=== PATIENT | female | born 1960 | race African-American/Black ===

== ENCOUNTER 2016-12-20 07:32 | Observation (INO) | payer OTHER ==
[~2016-12-20] VITALS: Ht 180.3 cm; Wt 92.0 kg
[2016-12-20 07:34] VITALS: BP 185/99; PULSE 130; RESP 24; TEMP 98.9; O2SAT 93
[2016-12-20] MEDS ORDERED: BUTA1CAP PO (07:46)
--- NOTE | 2016-12-20 08:00 | PD ---
HPI Chief Complaint: ENT Complaint Time Seen by Provider: 08:00 Travel History International Travel<30 days: No Contact w/Intl Traveler<30days: No Traveled to known affect area: No History of Present Illness HPI 56-year-old female came to the emergency room with history of right sided throat pain, difficulty swallowing and pain radiating into her right ear. Patient says this started this morning. Patient is deaf and has difficulty speaking. It is difficult to understand exactly what she says but most of it was obtained from hand gestures and reading lips. Patient was tachycardic upon arrival but also seemed anxious. She was afebrile. ON LICENSE OF [facility] Past Medical History Narrative Medical List of her past medical, surgical, social and family history is reviewed from the nursing note. Migraines: Yes Social History Alcohol Use: Yes (WEEKENDS) Tobacco Use: Yes (OCC) Substance Use: No Allergies-Medications (Allergen,Severity, Reaction): Coded Allergies: penicillin G (Verified Allergy, Severe, Hives, 12/20/16) Comments List of her allergies reviewed from the nursing note. Reported Meds & Prescriptions Reported Meds & Active Scripts Active Reported Fioricet (Tzxfegdqhh-Jzfgviddgkbvk-Ejlhqzmf) Unknown Strength Cap Unknown Dose PO Q4H PRN Narrative Medication List of her home medications reviewed from the nursing note. Review of Systems Except as stated in HPI: all other systems reviewed are Neg Physical Exam Narrative GENERAL: Awake, alert, moderate distress, anxious SKIN: Focused skin assessment warm/dry. HEAD: Atraumatic. Normocephalic. EYES: Pupils equal and round. No scleral icterus. No injection or drainage. ENT: No nasal bleeding or discharge. Mucous membranes pink and moist. Right anterior and posterior pillar of the tonsil swollen, angioedema, trismus NECK: Trachea midline. No JVD. CARDIOVASCULAR: Regular rate and rhythm. No murmur appreciated. RESPIRATORY: No accessory muscle use. Clear to auscultation. Breath sounds equal bilaterally. GASTROINTESTINAL: Abdomen soft, non-tender, nondistended. Hepatic and splenic margins not palpable. MUSCULOSKELETAL: No obvious deformities. No clubbing. No cyanosis. No edema. NEUROLOGICAL: Awake and alert. No obvious cranial nerve deficits. Motor grossly within normal limits. Normal speech. PSYCHIATRIC: Appropriate mood and affect; insight and judgment normal. Data Data Last Documented VS Vital Signs Date Time Temp Pulse Resp B/P (MAP) Pulse Ox O2 Delivery O2 Flow Rate FiO2 12/20/16 08:40 105 20 94 12/20/16 08:04 Room Air 12/20/16 07:34 98.9 Orders Orders Ecg Monitoring (12/20/16 08:07) Iv Access Insert/Monitor (12/20/16 08:07) Oximetry (12/20/16 08:07) Diphenhydramine Inj (Benadryl Inj) (12/20/16 08:15) Methylprednisolone So Succ Inj (Solumedr (12/20/16 08:15) Famotidine Inj (Pepcid Inj) (12/20/16 08:15) Sodium Chlor 0.9% 1000 Ml Inj (Ns 1000 M (12/20/16 08:07) Sodium Chloride 0.9% Flush (Ns Flush) (12/20/16 08:15) Epinephrine (1:1000) Inj (Adrenalin (1:1 (12/20/16 08:15) Lorazepam Inj (Ativan Inj) (12/20/16 08:15) Ct Soft Tiss Neck W/O Iv Cont (12/20/16 ) Complete Blood Count With Diff (12/20/16 11:36) Basic Metabolic Panel (Bmp) (12/20/16 11:36) C-Reactive Protein (Crp) (12/20/16 11:36) Blood Culture (12/20/16 11:36) Ceftriaxone Inj (Rocephin Inj) (12/20/16 11:45) Vascular Access Team Consult/P PRN (12/20/16 12:37) Vascular Poc Ultrasound (12/20/16 ) Admit Order (Ed Use Only) (12/20/16 14:50) Labs Laboratory Tests Test 12/20/16 11:00 White Blood Count 11.2 TH/MM3 Red Blood Count 5.10 MIL/MM3 Hemoglobin 15.4 GM/DL Hematocrit 45.7 % Mean Corpuscular Volume 89.7 FL Mean Corpuscular Hemoglobin 30.2 PG Mean Corpuscular Hemoglobin Concent 33.6 % Red Cell Distribution Width 14.0 % Platelet Count 239 TH/MM3 Mean Platelet Volume 9.5 FL Neutrophils (%) (Auto) 67.8 % Lymphocytes (%) (Auto) 20.4 % Monocytes (%) (Auto) 9.7 % Eosinophils (%) (Auto) 1.8 % Basophils (%) (Auto) 0.3 % Neutrophils # (Auto) 7.5 TH/MM3 Lymphocytes # (Auto) 2.3 TH/MM3 Monocytes # (Auto) 1.1 TH/MM3 Eosinophils # (Auto) 0.2 TH/MM3 Basophils # (Auto) 0.0 TH/MM3 CBC Comment DIFF FINAL Differential Comment Blood Urea Nitrogen 12 MG/DL Creatinine 0.79 MG/DL Random Glucose 86 MG/DL Calcium Level 9.6 MG/DL Sodium Level 138 MEQ/L Potassium Level 3.9 MEQ/L Chloride Level 105 MEQ/L Carbon Dioxide Level 25.6 MEQ/L Anion Gap 7 MEQ/L Estimat Glomerular Filtration Rate 90 ML/MIN C-Reactive Protein 1.60 MG/DL MDM Medical Decision Making Medical Screen Exam Complete: Yes Emergency Medical Condition: Yes Medical Record Reviewed: Yes Differential Diagnosis Angioedema, allergic reaction, infection Narrative Course 11:42 AM initially upon her presentation given the angioedema I have posted as an allergic reaction. Patient has been a poor historian given the speaking difficulty. She was also very anxious and edgy and all over the place. She was given IV Solu-Medrol, IV Benadryl, IV famotidine and IM epinephrine. Given her anxiety she was given 0.5 mg of IV Ativan. She was getting 1 L of IV fluid bolus while in the middle of the bolus the line infiltrated and the nurse had to stop it. I went back and reassessed her little while ago and she was asleep but when she woke up she had to spit her saliva again. Upon doing the intraoral exam this swelling seemed to be better but still there. Patient still seemed to be in pain. I ordered a CT scan for the soft tissue of the neck without contrast which shows a possible mass that could either be infectious or malignancy. Based on this I have ordered blood test and I will admit this patient. I've given her a dose of Rocephin order as well. Awaiting for the blood test and the admitting physician. Critical Care Narrative Aggregate critical care time was 45 minutes minutes. Time to perform other separately billable procedures was not included in the critical care time. My time did not include minutes spent treating any other patients simultaneously or on activities that did not directly contribute to the patient's treatment. The services I provided to this patient were to treat and/or prevent clinically significant deterioration that could result in: Angioedema in the throat unilaterally, treatment for severe allergy including epinephrine I provided critical care services requiring my management, as noted below: Chart data review, documentation time, medication orders and management, vital sign assessments/reviewing monitor data, ordering and reviewing lab tests, ordering and interpreting/reviewing x-rays and diagnostic studies, care of the patient and discussion of the patient with the admitting physicians. Procedures EKG Prior to Arrival: No Diagnosis Primary Impression: Localized soft tissue swelling Additional Impression: Angioedema Qualified Codes: T78.3XXA - Angioneurotic edema, initial encounter Admitting Information Admitting Physician Requests: Observation Scripts Methylprednisolone Dosepak (Methylprednisolone Dosepak) 4 Dspk 4 MG PO DIRECTED for Inflammation, #1 DSPK 0 Refills Per Pharmacist Direction Prov: Toñito Pagan MD 12/21/16 Clindamycin (Clindamycin) 300 Mg Cap 300 MG PO Q6H for Infection, #56 CAP 0 Refills Prov: Toñito Pagan MD 12/21/16 Lactobacillus Acidophilus (Acidophilus/l-Sporogenes) 35 Million Cell-25 Million Cell Tab 1 TAB PO TID for probiotic, #60 TAB 0 Refills Prov: Toñito Pagan MD 12/21/16 Pramod Murray MD Dec 20, 2016 08:00
[2016-12-20 08:04] VITALS: BP 131/81; PULSE 124; RESP 20; O2SAT 94
[2016-12-20] MEDS ORDERED: SODIUM CHLOR 0.9% 1000 ML INJ 1,000 ML IV SCH (08:07)
[2016-12-20] MEDS ORDERED: diphenhydrAMINE HCL 50 MG/ML VIAL IVP ONE (08:15)
[2016-12-20] MEDS ORDERED: FAMOTIDINE 20 MG/2 ML VIAL IV PUSH ONE (08:15)
[2016-12-20] MEDS ORDERED: EPINEPHrine HCL (1:1000) 1 MG/ML VIAL IM ONE (08:15)
[2016-12-20] MEDS ORDERED: methylPREDNISolone SOD SUCC 125 MG/2 ML VIAL IV PUSH ONE (08:15)
[2016-12-20] MEDS ORDERED: LORazepam 2 MG/ML VIAL IV PUSH ONE (08:15)
[2016-12-20] MEDS ORDERED: SODIUM CHLORIDE 0.9% FLUSH 10 ML FLUSH IV FLUSH PRN (08:15)
[2016-12-20 08:40] VITALS: PULSE 105; RESP 20; O2SAT 94
--- NOTE | 2016-12-20 11:34 | RADRPT ---
EXAM DATE/TIME: 12/20/2016 10:50 [place] COMPARISON: No previous studies available for comparison. INDICATIONS : Sore throat for two days. RADIATION DOSE: 15.74 CTDIvol (mGy) MEDICAL HISTORY : None SURGICAL HISTORY : None. ENCOUNTER: Initial ACUITY: 1 day PAIN SCORE: 7/10 LOCATION: Bilateral neck TECHNIQUE: Volumetric scanning of the neck was performed. Using automated exposure control and adjustment of th e mA and/or kV according to patient size, radiation dose was kept as low as reasonably achievable to obtain optimal diagnostic quality images. DICOM format image data is available electronically for re view and comparison. FINDINGS: NASOPHARYNX: The nasopharyngeal airway has a normal configuration. No mucosal thickening or mass is seen. OROPHARYNX: The intrinsic muscles of the tongue are symmetric. There is asymmetric soft tissue fullness in the r ight tonsillar region which extends inferiorly into the hypopharynx and piriform recess. No abscess is visualized. LARYNX: No acute abnormality. SALIVARY GLANDS: The parotid and submandibular glands demonstrate no abnormality. LYMPH NODES: There is an enlarged right level II lymph node measuring 14 mm in short axis diameter. THYROID: Homogeneous enhancement without evidence of nodule. BONES: There degenerative changes throughout the cervical spine. There is severe emphysematous changes at the lung apices. Visualized cranial structures demonstrate n o acute finding. CONCLUSION: 1. Abnormal asymmetric soft tissue thickening and fullness in the right tonsillar region in the oroph arynx and extending inferiorly into the hypopharynx to the piriform recess. There is also an adjacent enlarged right level II lymph node. Given the clinical history findings could represent an inflammat ory process but neoplasm needs to be considered. If symptoms do not resolve suggest direct visualizat ion of this area for further evaluation. 2. Severe emphysema. John Madrid MD on December 20, 2016 at 11:27 Board Certified Radiologist. This report was verified electronically.
[2016-12-20] MEDS ORDERED: cefTRIAXone INJ 1,000 MG in SODIUM CHLORIDE 0.9% INJ 100 ML IV ONE (11:45)
[2016-12-20 11:57] LABS: AUTOMATED NEUTROPHIL # 7.5 TH/MM3 (1.8-7.7); BASOPHIL % 0.3 % (0.0-2.0); EOSINOPHIL # 0.2 TH/MM3 (0-0.4); EOSINOPHIL % 1.8 % (0.0-4.0); HEMATOCRIT 45.7 % (35.0-46.0); HEMO FLAGS DIFF FINAL; LYMPH % 20.4 % (9.0-44.0); LYMPHOCYTE # 2.3 TH/MM3 (1.0-4.8); MEAN CELL VOLUME 89.7 FL (80.0-100.0); MEAN CORPUSCULAR HEMOGLOBIN 30.2 PG (27.0-34.0); MEAN CORPUSCULAR HGB CONC 33.6 % (32.0-36.0); MONO % 9.7 % (0.0-8.0); NEUT % 67.8 % (16.0-70.0); PLATELET COUNT 239 TH/MM3 (150-450); WHITE BLOOD COUNT 11.2 TH/MM3 (4.0-11.0)
[2016-12-20 12:13] LABS: BICARBONATE 25.6 MEQ/L (21.0-32.0); POTASSIUM 3.9 MEQ/L (3.5-5.1)
[2016-12-20] MEDS ORDERED: MAGNESIUM HYDROXIDE SUSP 30 ML CUP PO PRN (15:15)
[2016-12-20] MEDS ORDERED: ONDANSETRON HCL 4 MG/2 ML VIAL IVP PRN (15:15)
[2016-12-20] MEDS ORDERED: diphenhydrAMINE HCL 50 MG/ML VIAL IV PUSH PRN (15:15)
[2016-12-20] MEDS ORDERED: BISACODYL 10 MG SUPP RECTAL PRN (15:15)
[2016-12-20] MEDS ORDERED: NALOXONE HCL 0.4 MG/ML AMP IV PUSH PRN (15:15)
[2016-12-20] MEDS ORDERED: LACTULOSE SYRUP 20 GM/30 ML CUP PO PRN (15:15)
[2016-12-20] MEDS ORDERED: SENNOSIDES 8.6 MG TAB PO PRN (15:15)
--- NOTE | 2016-12-20 15:33 | HHI.HP ---
[facility] Unknown Admission Diagnosis oral angioedema, right pyriformis fossa swelling Diagnoses: (1) Localized soft tissue swelling Diagnosis: Secondary (2) Angioedema Travel History International Travel<30 Days: No Contact w/Intl Traveler <30 Da: No Traveled to Known Affected Are: No History of Present Illness Written by Loli Davis, acting as scribe for Dr. Pagan on 12/20/16 at 15: 20. Ms. Stewart is a 56-year-old female patient with a known medical history of chronic migraines and hypertension who presented to the ED with complaints of right sided jaw swelling and pain. Patient is slightly deaf and swelling caused additional difficulty in speaking. Patient noticed the neck swelling and pain started 4 days ago, pain a 10/10 on pain scale at its worse, throbbing in nature , radiates up to right ear. Patient has not ate or drank anything for 2 days now. Does admit to associated low grade fever at home, with cough and several bouts of vomiting. Does admit to chronic migraine headache. Denies any recent abdominal pain, dysuria or diarrhea. Patient is from [facility] visiting her daughter and grandchildren. Review of Systems Ears, nose, mouth, throat: COMPLAINS OF: Throat pain, Hoarseness, Ear Pain, Toothache Psychiatric: COMPLAINS OF: Anxiety Except as stated in HPI: all other systems reviewed are Neg Past Family Social History Past Medical History Hypertension Chronic migraines Past Surgical History Reported Medications Active Reported Fioricet (Jdnxeyeaum-Gsmvjiwwvyiyq-Nxnnxsnf) Unknown Strength Cap Unknown Dose PO Q4H PRN Allergies: Coded Allergies: penicillin G (Verified Allergy, Severe, Hives, 12/20/16) Active Ordered Medications Current Medications Medications (Trade) Dose Ordered Sig/Nataly Route Start Time Stop Time Status Last Admin (NS Flush) 2 ml UNSCH PRN IV FLUSH 12/20/16 08:15 12/20/16 08:27 Family History Patient states a significant family medical history of cancer in the family. Social History Admits to socially drinking alcohol and smoking on the weekends. Denies any illicit drug use. Physical Exam Vital Signs Vital Signs Date Time Temp Pulse Resp B/P (MAP) Pulse Ox O2 Delivery O2 Flow Rate FiO2 12/20/16 08:40 105 20 94 12/20/16 08:24 129 131/81 12/20/16 08:04 124 20 131/81 (98) 94 Room Air 12/20/16 07:34 98.9 130 24 185/99 (127) 93 Room Air Physical Exam GENERAL: This is a well-nourished, well-developed female patient, sitting up in bed with complaints of right sided jaw pain and swelling. SKIN: No rashes, ecchymoses or lesions. Warm and dry. HEENT: Atraumatic. Normocephalic. Pupils equal round and reactive. Extraocular motions intact. No scleral icterus. No injection or drainage. Nose without bleeding. Throat without exudate. Uvula midline. Airway patent. Right anterior and posterior pillar of the tonsil swollen, angioedema, and erythremic. NECK: Trachea midline. No JVD. Supple. Tender to palpation on right jaw line, apparent swelling. Unable to palpate lymph nodes, patient refusing due to pain. CARDIOVASCULAR: Sinus tachycardia. No murmurs, gallops, or rubs. RESPIRATORY: Clear to auscultation. Breath sounds equal bilaterally. No wheezes , rales, or rhonchi. Tachypneic. GASTROINTESTINAL: Abdomen soft, non-tender, nondistended. No guarding. MUSCULOSKELETAL: Extremities without clubbing, cyanosis, or edema. No joint tenderness, effusion, or edema noted. NEUROLOGICAL: Awake and alert. Cranial nerves II through XII intact. Motor and sensory grossly within normal limits. Five out of 5 muscle strength in all muscle groups. Patient writing most of the responses to questions, speech causing pain to patient, history of some deafness. Laboratory Laboratory Tests Test 12/20/16 11:00 White Blood Count 11.2 Red Blood Count 5.10 Hemoglobin 15.4 Hematocrit 45.7 Mean Corpuscular Volume 89.7 Mean Corpuscular Hemoglobin 30.2 Mean Corpuscular Hemoglobin Concent 33.6 Red Cell Distribution Width 14.0 Platelet Count 239 Mean Platelet Volume 9.5 Neutrophils (%) (Auto) 67.8 Lymphocytes (%) (Auto) 20.4 Monocytes (%) (Auto) 9.7 Eosinophils (%) (Auto) 1.8 Basophils (%) (Auto) 0.3 Neutrophils # (Auto) 7.5 Lymphocytes # (Auto) 2.3 Monocytes # (Auto) 1.1 Eosinophils # (Auto) 0.2 Basophils # (Auto) 0.0 CBC Comment DIFF FINAL Differential Comment Blood Urea Nitrogen 12 Creatinine 0.79 Random Glucose 86 Calcium Level 9.6 Sodium Level 138 Potassium Level 3.9 Chloride Level 105 Carbon Dioxide Level 25.6 Anion Gap 7 Estimat Glomerular Filtration Rate 90 C-Reactive Protein 1.60 Date/Time Source Procedure Growth Status 12/20/16 13:35 Blood Peripheral Aerobic Blood Culture Pending Received 12/20/16 13:35 Blood Peripheral Anaerobic Blood Culture Pending Received Result Diagram: 12/20/16 1100 12/20/16 1100 Imaging Last Impressions Neck CT 12/20/16 0000 Signed Impressions: Service Date/Time: Tuesday, December 20, 2016 10:50 - CONCLUSION: 1. Abnormal asymmetric soft tissue thickening and fullness in the right tonsillar region in the oropharynx and extending inferiorly into the hypopharynx to the piriform recess. There is also an adjacent enlarged right level II lymph node. Given the clinical history findings could represent an inflammatory process but neoplasm needs to be considered. If symptoms do not resolve suggest direct visualization of this area for further evaluation. 2. Severe emphysema. MD Love Vora VTE Risk Assessment Eladiorini VTE Risk Assessment: No/Low Risk (score <= 1) Caprini Risk Assessment Model Point Value = 1 Point Value = 2 Point Value = 3 Point Value = 5 Age 41-60 Minor surgery BMI > 25 kg/m2 Swollen legs Varicose veins or History of unexplained or recurrent spontaneous Oral contraceptives or hormone replacement Sepsis (< 1 month) Serious lung disease, including pneumonia (< 1 month) Abnormal pulmonary function Acute myocardial infarction Congestive heart failure (< 1 month) History of inflammatory bowel disease Medical patient at bed rest Age 61-74 Arthroscopic surgery Major open surgery (> 45 min) Laparoscopic surgery (> 45 min) Malignancy Confined to bed (> 72 hours) Immobilizing plaster cast Central venous access Age >= 75 History of VTE Family history of VTE Factor V Leiden Prothrombin [id number] Lupus anticoagulant Anticardiolipin antibodies Elevated serum homocysteine Heparin-induced thrombocytopenia Other congenital or acquired thrombophilia Stroke (< 1 month) Elective arthroplasty Hip, pelvis, or leg fracture Acute spinal cord injury (< 1 month) Prophylaxis Regimen Total Risk Factor Score Risk Level Prophylaxis Regimen 0-1 Low Early ambulation 2 Moderate Order ONE of the following: *Sequential Compression Device (SCD) *Heparin 5000 units SQ BID 3-4 Higher Order ONE of the following medications: *Heparin 5000 units SQ TID *Enoxaparin/Lovenox 40 mg SQ daily (WT < 150 kg, CrCl > 30 mL/min) *Enoxaparin/Lovenox 30 mg SQ daily (WT < 150 kg, CrCl > 10-29 mL/min) *Enoxaparin/Lovenox 30 mg SQ BID (WT < 150 kg, CrCl > 30 mL/min) AND/OR *Sequential Compression Device (SCD) 5 or more Highest Order ONE of the following medications: *Heparin 5000 units SQ TID (Preferred with Epidurals) *Enoxaparin/Lovenox 40 mg SQ daily (WT < 150 kg, CrCl > 30 mL/min) *Enoxaparin/Lovenox 30 mg SQ daily (WT < 150 kg, CrCl > 10-29 mL/min) *Enoxaparin/Lovenox 30 mg SQ BID (WT < 150 kg, CrCl > 30 mL/min) AND *Sequential Compression Device (SCD) Assessment and Plan Assessment and Plan Ms. Stewart is a 56-year-old female patient with a known medical history of chronic migraines and hypertension who presented to the ED with complaints of right sided jaw swelling and pain. Patient states that she noticed the swelling start 4 days ago, pain a 10/10 on pain scale at its worse, throbbing in nature, radiates up to right ear. Localized right jaw tissue swelling - Neck CT reviewed showing Abnormal asymmetric soft tissue thickening and fullness in the right tonsillar region in the oropharynx and extending inferiorly into the hypopharynx to the piriform recess. There is also an adjacent enlarged right level II lymph node. Given the clinical history findings could represent an inflammatory process but neoplasm needs to be considered. - Patient was given methylprednisolone 125 mg IV x 1, Benadryl 50 mg IV x 1, epinephrine 0.3 mg IM x 1, 1 L NS bolus x 1, and ceftriaxone 1 g IV x 1 in ED. - Afebrile. Mild leukocytosis, WBC 11.2. CRP slightly elevated 1.6. BC ordered and pending. Follow. Will repeat CBC and BMP in am. Status post Rocephin IV x 1. - Consult placed to ENT for further recommendations and input. - Benadryl IV available PRN. - Placed on methylprednisone 60 mg IV q6hr. - Ensure hydration, place on NS 20K IV at 84 ml/hr. Hypertension, chronic: Systolic bp elevated on presentation, probably pain related. Now more controlled. Will continue to monitor BP trends. Chronic migraine headaches DVT Prophylaxis: SCDs. This note was transcribed by ed Davis. I, Dr. Toñito Pagan personally performed the history, physical exam, and medical decision making; and confirmed the accuracy of the information in the transcribed note. Authenticated by Dr. Toñito Pagan on 12/20/16 at 15:44. Problem Qualifiers (1) Angioedema: Qualified Codes: T78.3XXA - Angioneurotic edema, initial encounter Loli Davis Dec 20, 2016 15:33 Toñito Pagan MD Dec 20, 2016 15:44
[2016-12-20 16:25] VITALS: BP 134/93; PULSE 125; RESP 18; TEMP 99.1; O2SAT 93
[2016-12-20] MEDS: NS + KCL 20 MEQ INJ 1,000 ML IV SCH (17:41)
[2016-12-20] MEDS: MORPHINE SULFATE 4 MG/ML INJ IV PUSH PRN (17:42)
[2016-12-20] MEDS: methylPREDNISolone SOD SUCC 40 MG/1 ML VIAL IV PUSH SCH (17:42)
[2016-12-20 20:43] VITALS: BP 173/108; PULSE 120; RESP 18; TEMP 98; O2SAT 90
[2016-12-20 23:55] VITALS: BP 135/92; PULSE 74; RESP 18; TEMP 98.1; O2SAT 98
[2016-12-21] MEDS: methylPREDNISolone SOD SUCC 40 MG/1 ML VIAL IV PUSH SCH ×3 (00:21→12:20)
[2016-12-21] MEDS: MORPHINE SULFATE 4 MG/ML INJ IV PUSH PRN ×2 (00:22→08:38)
[2016-12-21] MEDS: NS + KCL 20 MEQ INJ 1,000 ML IV SCH ×2 (03:10→07:46)
[2016-12-21 04:46] VITALS: BP 128/81; PULSE 119; RESP 18; TEMP 98.4; O2SAT 97
[2016-12-21 05:34] LABS: AUTOMATED NEUTROPHIL # 19.4 TH/MM3 (1.8-7.7); BASOPHIL # 0.1 TH/MM3 (0-0.2); BASOPHIL % 0.3 % (0.0-2.0); HEMATOCRIT 40.8 % (35.0-46.0); LYMPH % 6.3 % (9.0-44.0); LYMPHOCYTE # 1.4 TH/MM3 (1.0-4.8); MEAN CELL VOLUME 88.8 FL (80.0-100.0); MEAN CORPUSCULAR HEMOGLOBIN 29.8 PG (27.0-34.0); MEAN CORPUSCULAR HGB CONC 33.6 % (32.0-36.0); MONO % 4.3 % (0.0-8.0); NEUT % 89.1 % (16.0-70.0); PLATELET COUNT 219 TH/MM3 (150-450); RED CELL DISTRIBUTION WIDTH 14.1 % (11.6-17.2); WHITE BLOOD COUNT 21.8 TH/MM3 (4.0-11.0)
[2016-12-21 05:37] LABS: HEMO FLAGS AUTO DIFF
[2016-12-21 05:53] LABS: BICARBONATE 22.4 MEQ/L (21.0-32.0); POTASSIUM 4.1 MEQ/L (3.5-5.1)
--- NOTE | 2016-12-21 05:54 | MB ---
cc: RIP CORONEL DR. DATE OF CONSULTATION 12/20/2016 CHIEF COMPLAINT Right throat pain. HISTORY The patient is a pleasant 56-year-old female with diagnosis of oral angioedema. She is well known for a medical history of hypertension who presented with right jaw swelling and pain. She is slightly deaf. She had a severe pain this morning. The severe pain is significantly improved. She has a very strong appetite at this time. She has no active airway issues. IMAGING STUDIES CAT scan performed revealed asymmetric soft tissue fullness in the right tonsillar region extending to the hypopharynx and pyriform earlier today. There was no abscess visualized. There was also right Level II adenopathy as well. It also reveals significant edema. PHYSICAL EXAMINATION Flexible fiberoptic laryngoscopy revealed mild right lateral pharyngeal edema. However, the airway was widely patent and the vocal cords were crisp and mobile bilaterally. The patient was very comfortable during the examination and even offered to allow for the hospitalist team to both view the cords as well as there was no pain with this examination. The neck was palpated, was mildly full on the right but no distinct lymph node or adenopathy was palpated and there was no exquisite tenderness to palpation either. ASSESSMENT The patient has assessment of right inflammatory process, possibly infectious and lower likelihood of being malignant. RECOMMENDATIONS 1. I recommend the patient advance her diet at this time to a soft diet. 2. The patient may likely be able to be discharged within 24 hours after continued antibiotics and steroids. 3. I recommend the patient follow up with an ENT in two to four weeks for follow-up evaluation and ensuring that there is no other malignant process present as well. The plan was discussed with the home team in person. 4. I also recommend the patient, when she is finally discharged, to go home with two weeks of oral antibiotics as well as a Medrol Dosepak of steroids. Thank you for this consultation. Fabian Gibson MD CCP/SSB /9:34 PM /5:41 AM
[2016-12-21 08:13] VITALS: BP 145/95; PULSE 96; RESP 24; TEMP 97.7; O2SAT 93
[2016-12-21] MEDS ORDERED: METH4PAK PO (09:04)
[2016-12-21] MEDS ORDERED: CLIN1CAP6 PO (09:04)
[2016-12-21] MEDS ORDERED: LACT PO (09:04)
--- NOTE | 2016-12-21 09:05 | HHI.DCPOC ---
Discharge Care Plan Diagnosis: (1) Localized soft tissue swelling Goals to Promote Your Health * To prevent worsening of your condition and complications * To maintain your health at the optimal level Directions to Meet Your Goals Take your medications as prescribed Follow your dietary instruction Follow activity as directed Keep your appointments as scheduled Take your immunizations and boosters as scheduled If your symptoms worsen call your PCP, if no PCP go to Urgent Care Center or Emergency Room Smoking is Dangerous to Your Health. Avoid second hand smoke Call the 24-hour hour crisis hotline for domestic abuse at Toñito Pagan MD Dec 21, 2016 09:05
--- NOTE | 2016-12-21 09:13 | HHI.PR ---
Subjective Remarks Follow up soft tissue swelling of the neck, right knee pain. Patient states that her throat feels much better. She is able to swallow without difficulty and can speak much better. Right knee still swollen and painful. She wants to go home today. Objective Vitals Vital Signs Date Time Temp Pulse Resp B/P (MAP) Pulse Ox O2 Delivery O2 Flow Rate FiO2 12/21/16 08:13 97.7 96 24 145/95 (112) 93 12/21/16 04:46 98.4 119 18 128/81 (97) 97 12/20/16 23:55 98.1 74 18 135/92 (106) 98 12/20/16 20:43 98.0 120 18 173/108 (129) 90 12/20/16 17:56 22 12/20/16 16:25 99.1 125 18 134/93 (107) 93 12/20/16 16:21 I/O 12/20/16 12/20/16 12/20/16 12/21/16 12/21/16 12/21/16 07:00 15:00 23:00 07:00 15:00 23:00 Intake Total 250 ml 100 ml Balance 250 ml 100 ml Intake IV Total 250 ml 100 ml Result Diagram: 12/21/16 0523 12/21/16 0523 Imaging Last Impressions Neck CT 12/20/16 0000 Signed Impressions: Service Date/Time: Tuesday, December 20, 2016 10:50 - CONCLUSION: 1. Abnormal asymmetric soft tissue thickening and fullness in the right tonsillar region in the oropharynx and extending inferiorly into the hypopharynx to the piriform recess. There is also an adjacent enlarged right level II lymph node. Given the clinical history findings could represent an inflammatory process but neoplasm needs to be considered. If symptoms do not resolve suggest direct visualization of this area for further evaluation. 2. Severe emphysema. John Madrid MD Objective Remarks General: No acute distress. HEENT: Swelling in the posterior oropharynx is much improved today. Heart: Regular rate and rhythm. No murmur. Lungs: Clear to auscultation bilaterally. No wheezes, rales, or rhonchi. Breathing is nonlabored. Abdomen: Soft, nontender, nondistended. Extremities: No lower extremity edema. Psych: Alert and oriented. Speech is much more clear today. Procedures None Urinary Catheter: No Vascular Central Line Catheter: No A/P Problem List: (1) Localized soft tissue swelling ICD Code: R22.9 - Localized swelling, mass and lump, unspecified Status: Acute (2) Angioedema ICD Code: T78.3XXA - Angioneurotic edema, initial encounter Status: Acute Assessment and Plan 1. Localized right neck soft tissue swelling: Appreciate ENT recommendations. Swelling has improved since yesterday. Continue antibiotics and steroids per ENT recommendations. 2. Right knee pain: Not improving. Patient still has significant difficulty in regulating. PTE valve. Check x-ray of the knee. 3. Hypertension, chronic: Elevated secondary to pain. Not currently on antihypertensive medications. 4. Leukocytosis: Likely secondary to steroids. 5. DVT prophylaxis: SCDs. Discharge Planning Probable discharge home this afternoon ending x-ray report and PT eval. Problem Qualifiers (1) Angioedema: Qualified Codes: T78.3XXA - Angioneurotic edema, initial encounter Toñito Pagan MD Dec 21, 2016 09:13
[2016-12-21] MEDS ORDERED: CLINDAMYCIN INJ 300 MG in SODIUM CHLORIDE 0.9% INJ 100 ML IV SCH (10:00)
--- NOTE | 2016-12-21 10:18 | RADRPT ---
EXAM DATE/TIME: 12/21/2016 10:06 [facility] COMPARISON: No previous studies available for comparison. INDICATIONS : Right knee pain. MEDICAL HISTORY : old injury 1995, started hurting recently SURGICAL HISTORY : None. ENCOUNTER: Initial ACUITY: 1 week PAIN SCORE: 10/10 LOCATION: Right knee FINDINGS: There is severe osteoarthritis of the knee and decreased bone mineralization. Severe narrowing of the medial tibiofemoral compartment, mild subchondral sclerosis and marginal osteophyte formation identi fied. Small effusion. No fracture or dislocation. CONCLUSION: Osteoarthritis and decreased bone density. Wade Nixon MD on December 21, 2016 at 10:16 Board Certified Radiologist. This report was verified electronically.
[2016-12-21] MEDS: LACTOBACILLUS ACIDOPHILUS TAB PO SCH ×2 (11:01→12:18)
[2016-12-21 11:54] VITALS: BP 127/84; PULSE 115; RESP 20; TEMP 97.8; O2SAT 92
--- NOTE | 2016-12-21 13:56 | HHI.FF ---
Face to Face Verification Diagnosis: (1) Right knee pain (2) Localized soft tissue swelling Physical Therapy Order: Evaluate and Treat I have seen patient Tenisha Stewart on 12/21/16. My clinical findings support the need for the requested home health care services because: High risk of falls I certify that my clinical findings support that this patient is homebound because: Unsteady gait/balance Toñito Pagan MD Dec 21, 2016 13:56
== END 2016-12-21 15:35 | disposition home or self-care (01) ==
LOC: NEPE 07:32 → NEDA 14:51 → NEPGCP 18:21
PROVIDERS: ADMIT Family Medicine; ATTEND Family Medicine
DX: T78.3XXA Angioneurotic edema, initial encounter (principal); T38.0X5A Adverse effect of glucocorticoids and synthetic analogues, initial encounter; I10 Essential (primary) hypertension; J43.9 Emphysema, unspecified; D72.829 Elevated white blood cell count, unspecified; G43.909 Migraine, unspecified, not intractable, without status migrainosus; F41.9 Anxiety disorder, unspecified; H91.90 Unspecified hearing loss, unspecified ear; Z72.0 Tobacco use
CPT/HCPCS: 70490; 73564; 80048; 85025; 86140; 87040; 96361; 96365; 96366; 96375; 96376; 97162; 99291; G0378; G8987; G8988; J0171; J0696; J1200; J2060; J2270; J2920; J2930; J3480; J7030